=== PATIENT | male | born 1990 | race Caucasian/White ===

== ENCOUNTER 2018-05-16 15:52 | Emergency (ER) | payer OTHER ==
[~2018-05-16] VITALS: Ht 193 cm; Wt 111.1 kg
[2018-05-16] MEDS ORDERED: NORCO 5-325 TA1 EAC1 PO (16:33)
[2018-05-16 17:03] VITALS: BP 126/81
== END 2018-05-16 17:04 | disposition home or self-care (01) ==
LOC: M.ERS 15:52
DX: S92.351A Displaced fracture of fifth metatarsal bone, right foot, initial encounter for closed fracture (principal); X50.9XXA Other and unspecified overexertion or strenuous movements or postures, initial encounter; Y93.02 Activity, running; Y92.89 Other specified places as the place of occurrence of the external cause; Y99.8 Other external cause status

== ENCOUNTER 2019-08-13 12:46 | Emergency (ER) | payer BC, OTHER ==
[~2019-08-13] VITALS: Ht 185.4 cm; Wt 99.8 kg
[~2019-08-13 12:46] MED LIST: NORCO 5-325 TA1 EAC1 PO
[2019-08-13 13:38] VITALS: BP 134/74
== END 2019-08-13 13:39 | disposition home or self-care (01) ==
LOC: M.ERS 12:46
DX: S60.452A Superficial foreign body of right middle finger, initial encounter (principal); W45.0XXA Nail entering through skin, initial encounter; Y92.89 Other specified places as the place of occurrence of the external cause; Y93.89 Activity, other specified; Y99.8 Other external cause status